=== PATIENT | female | born 1985 | race Caucasian/White ===

== ENCOUNTER 2021-03-27 19:43 | Emergency (ER) | payer OTHER ==
[~2021-03-27] VITALS: Ht 188 cm; Wt 108.1 kg
[2021-03-27] MEDS ORDERED: LIDOCAINE/EPI/TETRACAINE TOPICAL GEL 3 ML. TP ONE (22:03)
--- NOTE | 2021-03-27 22:26 | PHYS DOC ---
General Adult EDM: Chief Complaint: LACERATION/AVULSION HPI: HPI: ".. I was pulling grass and it cut my Lt. hand..." .." Its my dominate hand.. " Patient is a 35 year old female who presents with above hx and laceration to lateral side of palm of hand. Patient has a rather deep laceration across is th e palm her hand from pulling grass. Distal neurovascular intact. Patient is tetanus up-to-date. No history of depression. No history of travel. No history of sick ill contacts. Patient follows with Dr. Granger Review of Systems: Review of Systems: Constitutional: Denies fever or chills Eyes: Denies change in visual acuity HENT: Denies nasal congestion or sore throat Respiratory: Denies cough or shortness of breath Cardiovascular: Denies chest pain or edema GI: Denies abdominal pain, nausea, vomiting, bloody stools or diarrhea : Denies dysuria Musculoskeletal: Denies back pain or joint pain Integument: Denies rash. Complains of laceration to left palm Neurologic: Denies headache, focal weakness or sensory changes Endocrine: Denies polyuria or polydipsia Lymphatic: Denies swollen glands Psychiatric: Denies depression or anxiety Family History: Family History: Noncontributory to presentation Current Medications: Current Meds: Current Medications Medications (Trade) Dose Ordered Sig/Maki Start Time Stop Time Status Last Admin Dose Admin Lidocaine/ Epinephrine (Let ([id number]) Gel) 3 ml STK-MED ONCE 03/27/21 22:03 03/27/21 22:04 DC Allergies: Allergies: No known drug allergies other than penicillin Physical Exam: PE: Constitutional: Well developed, well nourished, in acute distress, non-toxic appearance. [] HENT: Normocephalic, atraumatic, bilateral external ears normal, oropharynx moist, no oral exudates, nose normal. [] Eyes: PERRLA, EOMI, conjunctiva normal, no discharge. [] Neck: Normal range of motion, no tenderness, supple, no stridor. [] Cardiovascular:Heart rate regular rhythm, no murmur [] Lungs & Thorax: Bilateral breath sounds clear to auscultation [] Abdomen: Bowel sounds normal, soft, no tenderness, no masses, no pulsatile masses. [] Skin: Warm, dry, no erythema, no rash. Laceration across left palm Back: No tenderness, no CVA tenderness. [] Extremities: No tenderness, no cyanosis, no clubbing, ROM intact, no edema. [] Neurologic: Alert and oriented X 3, normal motor function, normal sensory function, no focal deficits noted. [] Psychologic: Affect anxious, judgement normal, mood normal. [] EKG: EKG: [] Radiology/Procedures: Radiology/Procedures: [] Heart Score: C/O Chest Pain: N/A Risk Factors: Risk Factors: DM, Current or recent (<one month) smoker, HTN, HLP, family history of CAD, obesity. Risk Scores: Score 0 - 3: 2.5% MACE over next 6 weeks - Discharge Home Score 4 - 6: 20.3% MACE over next 6 weeks - Admit for Clinical Observation Score 7 - 10: 72.7% MACE over next 6 weeks - Early Invasive Strategies Course & Med Decision Making: Course & Med Decision Making Pertinent Labs and Imaging studies reviewed. (See chart for details) Procedure note- Laceration clean. Tetracaine lidocaine applied. Injected edge of laceration with lidocaine. Reirrigated range of motion. Applied 6 Ethilon sutures 4 .0 The patient keep laceration clean and dry. Apply Polysporin 4 times a day. Remove sutures in 10 days. Monitor for infection. [] Impression: 1. Laceration 6 cm Lt. palm Haseeb Disclaimer: Haseeb Disclaimer: This electronic medical record was generated, in whole or in part, using a voice recognition dictation system. Departure Departure: Referrals: MARITZA GRANGER MD (PCP) Haseeb Disclaimer This chart was dictated in whole or in part using Voice Recognition software in a busy, high-work load, and often noisy Emergency Department environment. It may contain unintended and wholly unrecognized errors or omissions. GONZALES RAGLAND MD Mar 27, 2021 22:26
[2021-03-27 23:35] VITALS: BP 122/80
[2021-03-28] MEDS ORDERED: DIPH,PERTUSS(ACELL),TET VAC/PF 0.5 ML SYRINGE. VAX IM ONE
== END 2021-03-27 23:55 | disposition home or self-care (01) ==
LOC: ER 19:43
DX: S61.412A Laceration without foreign body of left hand, initial encounter (principal); W26.8XXA Contact with other sharp object(s), not elsewhere classified, initial encounter; Y93.89 Activity, other specified; Y92.89 Other specified places as the place of occurrence of the external cause; Y99.8 Other external cause status
CPT/HCPCS: 12002; 90471; 90715; 99283